=== PATIENT | female | born 1995 | race Caucasian/White ===

== ENCOUNTER 2018-01-06 15:46 | Outpatient (CLI) | payer OTHER ==
--- NOTE | 2018-01-06 17:39 | ULT ---
PELVIC ULTRASOUND: INDICATIONS: Pelvic pain. Irregular menses. TECHNIQUE: Transabdominal ultrasound obtained. FINDINGS: The uterus has a normal appearance and size, measuring 6.9 x 3.3 x 4.3 cm. The endometrial stripe is within the normal range, measured at 7 mm. Both ovaries are identified and appear unremarkable. [place] Doppler with spectral analysis demonstrates blood flow to both ovaries. IMPRESSION: Unremarkable pelvic ultrasound. POS: MAXIMILIAN
== END 2018-01-06 15:47 | disposition home or self-care (01) ==
LOC: ULT 15:46
PROVIDERS: ATTEND Family Medicine
DX: R10.9 Unspecified abdominal pain (principal)
CPT/HCPCS: 76856; 93976